=== PATIENT | female | born 1990 | race African-American/Black ===

== ENCOUNTER 2018-06-24 22:52 | Emergency (ER) | payer OTHER ==
[~2018-06-24] VITALS: Ht 152.4 cm; Wt 66.7 kg
[~2018-06-24 22:52] MED LIST: APAP500 PO; BENADRYL25 MG PO; COLACE100 MG PO; DERMOPLAST SPRA56 ML; EPIPEN0.3 MG/0.1 IM; HYDROCODON-ACE1 EAC7 PO; HYDROCORTISONE30 G9 RE; IBUPROFEN 600600 M1 PO; IRON325 PO; NOHOMEMEDICATIONS; PEPCID40 MG PO; PREDNISONE 20 M20 MG PO; TUCKS MEDICATE1 EAC1; ULTRAM 50MG TAB50 MG PO
[2018-06-25] MEDS ORDERED: MOBIC15 MG PO (00:52)
[2018-06-25] MEDS ORDERED: VALIUM5 MG PO (00:52)
[2018-06-25 01:29] VITALS: BP 106/77
== END 2018-06-25 01:30 | disposition home or self-care (01) ==
LOC: ER 22:52
DX: S80.02XA Contusion of left knee, initial encounter (principal); S80.01XA Contusion of right knee, initial encounter; T14.8XXA Other injury of unspecified body region, initial encounter; Z91.013 Allergy to seafood; V49.3XXA Car occupant (driver) (passenger) injured in unspecified nontraffic accident, initial encounter; Y93.89 Activity, other specified; Y92.410 Unspecified street and highway as the place of occurrence of the external cause; Y99.8 Other external cause status

== ENCOUNTER 2019-01-22 17:29 | Emergency (ER) | payer OTHER ==
[~2019-01-22] VITALS: Ht 152.4 cm; Wt 72.6 kg
[~2019-01-22 17:29] MED LIST changes: +MOBIC15 MG PO; +VALIUM5 MG PO
[2019-01-22 17:50] LABS: URINE BILIRUBIN NEGATIVE (Negative); URINE BLOOD 3+ (Negative); URINE CLARITY CLEAR; URINE COLOR YELLOW; URINE GLUCOSE-RANDOM* NEGATIVE (Negative); URINE KETONES NEGATIVE (Negative); URINE LEUKOCYTES-REFLEX TRACE (Negative); URINE NITRITE-REFLEX NEGATIVE (Negative); URINE PROTEIN (DIPSTICK) 2+ (Negative)
[2019-01-22 17:52] VITALS: BP 120/80
[2019-01-22 18:07] LABS: BACTERIA-REFLEX None Seen /HPF (None Seen); CASTS None Seen /LPF (None Seen); CRYSTALS None Seen /LPF (None Seen); SQUAMOUS 4-10 Moderate /LPF (0-3)
[2019-01-22 19:29] LABS: ABSOLUTE NEUTROPHILS 4.1 thou/uL (1.4-8.2); BASOPHILS 0.9 % (0.0-2.0); EOSINOPHILS 2.1 % (0.0-3.0); HEMATOCRIT 36.4 % (37.0-47.0); HEMOGLOBIN 11.9 gm/dL (12.0-15.0); LYMPHOCYTES 14.7 % (24.0-44.0); MCH 29.8 pg (26.0-34.0); MCHC 32.6 g/dL (28.0-37.0); MCV 91.4 fL (80.0-100.0); MONOCYTES 10.4 % (1.0-8.0); PLATELET COUNT 336 thou/uL (150-400); POLYS 71.9 % (36.0-66.0); RBC 3.98 mil/uL (4.20-5.00); RDW 13.7 % (10.5-14.5); WBC 5.7 thou/uL (4.0-11.0)
[2019-01-22 19:48] LABS: CREATININE 0.9 mg/dL (0.6-1.0); POTASSIUM 4.3 mmol/L (3.5-5.1)
[2019-01-22 20:00] LABS: CALCIUM 9.8 mg/dL (8.5-10.1)
== END 2019-01-22 20:21 | disposition home or self-care (01) ==
LOC: ER 17:29
PROVIDERS: Emergency Medicine; Physician Assistant
DX: R31.9 Hematuria, unspecified (principal); M54.5 Low back pain; R10.9 Unspecified abdominal pain; Z91.013 Allergy to seafood